=== PATIENT | female | born 1990 | race Native Hawaiian/Other Pacific Islander ===

== ENCOUNTER 2025-04-03 17:00 | Emergency (ER) | payer OTHER, SELFPAY ==
--- NOTE | ~2025-04-03 | CT_ITS ---
CT abdomen pelvis w con Ordering provider: Regla Rogers PA-C History: 34 years Female with . abd pain . Comparison: None. Technique: CT abdomen and pelvis with IV and without oral contrast. Automated exposure control and it erative reconstruction technique were employed. The dose-length product was 323.20 mGy-cm. 100 mL Omn ipaque 350 was given IV. Findings: VISUALIZED LOWER CHEST: Normal. UPPER ABDOMINAL ORGANS: Liver: Normal. Gallbladder: Contracted. Spleen: Normal. Stomach/duodenum: Normal. Pancreas: Normal. Adrenals: Normal. Kidneys: Tiny cyst in the right kidney lower pole. Scar is seen in the right kidney midpole. PELVIC ORGANS: The bladder is underfilled with thickened wall. Evaluation for cystitis advised. Follicle is seen in the left ovary with the largest measures 1.5 cm. BOWEL AND MESENTERY: Colon: No evidence of diverticulitis. Fecal material is loaded in the colon. Normal appendix. Small Bowel: Normal. No obstruction. Peritoneum/mesentery: No free air or free fluid. No mesenteric lymphadenopathy. RETROPERITONEUM: Normal aorta. No retroperitoneal lymphadenopathy. MUSCULOSKELETAL: Superficial soft tissues: Small Fat containing umbilical hernia. Otherwise, The superficial soft tiss ues are normal. Bones: Normal spine. IMPRESSION: 1. 1 No evidence of appendicitis, diverticulitis or intestinal obstruction. 2. Constipation. 3. Left ovarian follicles with the largest measures 1.5 cm. 4. Thickened wall of the urinary bladder. Evaluation for cystitis is advised. Reviewed, dictated and finalized at location A.
[2025-04-03 17:02] VITALS: BP 125/77; PULSE 91; RESP 16; TEMP 36.6; O2SAT 98
[2025-04-03 19:58] VITALS: BP 130/93; PULSE 82; RESP 17; O2SAT 100
--- NOTE | 2025-04-03 20:13 | ED.ABDPAIN ---
HPI - Abdominal Pain General Chief Complaint: Abdominal Pain Stated Complaint: hernia? Time Seen by Provider: 04/03/25 20:06 Source: patient Mode of arrival: ambulatory Limitations: no limitations History of Present Illness HPI narrative: This is a 34 year old female that presents to the ER for abdominal pain. Reports she was lifting at work. [place] sudden onset abdominal discomfort. Reports pain around her umbilical hernia. Denies fever, vomiting, diarrhea. Related Data Allergies Allergy/AdvReac Type Severity Reaction Status Date / Time acetaminophen (From Vicodin) Allergy Severe Anaphylaxis Verified 04/03/25 20:04 banana Allergy Severe Anaphylaxis Verified 04/03/25 20:04 bee pollen Allergy Severe Anaphylaxis Verified 04/03/25 20:04 divalproex sodium (From Allergy Severe Swelling Verified 04/03/25 20:04 Depakote) of Lip/Tongue/Throat epinephrine Allergy Severe Other Verified 04/03/25 20:04 hydrocodone (From Vicodin) Allergy Severe Anaphylaxis Verified 04/03/25 20:04 kiwi Allergy Severe Anaphylaxis Verified 04/03/25 20:04 midazolam (From Versed) Allergy Severe Other Verified 04/03/25 20:04 quetiapine (From Seroquel) Allergy Severe Swelling Verified 04/03/25 20:04 of Lip/Tongue/Throat strawberry Allergy Mild Hives Verified 04/03/25 20:04 lidocaine AdvReac Mild Hives Verified 04/03/25 20:04 vancomycin AdvReac Mild Rash Verified 04/03/25 20:04 powder latex AdvReac Mild Hives Uncoded 04/03/25 20:04 Review of Systems Review of Systems: All systems reviewed & are unremarkable except as noted in HPI and below PMFSH Past Medical History Medical History (Updated 04/03/25 @ 22:46 by Regla Rogers PA-C) History of bipolar disorder Exam Narrative: GENERAL: Well-appearing, well-nourished, and in no acute distress. HEAD: Normocephalic, atraumatic. EYES: EOMI. CHEST: Clear to auscultation. No respiratory distress. No wheezes rales or rhonchi HEART: Regular rate and rhythm. No murmur heard. Normal peripheral pulses. ABDOMEN: Soft, nontender, nondistended, normal active bowel sounds. Umbilical hernia present, tender to palpation, without overlying redness EXTREMITIES: Normal range of motion. No edema. SKIN: Warm, dry, no rash. NEURO: No focal deficits. Alert and oriented x3. PSYCH: Normal mood and affect Course Course Emergency Course: Patient updated on her workup and agrees with plan of care. Resting comfortably Vital Signs Vital signs: Vital Signs Temperature 97.8 F 04/03/25 17:02 Pulse Rate 91 04/03/25 17:02 Respiratory Rate 16 04/03/25 17:02 Blood Pressure 125/77 04/03/25 17:02 Pulse Oximetry 98 04/03/25 17:02 Temperature 97.8 F 04/03/25 17:02 Pulse Rate 70 04/03/25 22:38 Respiratory Rate 18 04/03/25 22:38 Blood Pressure 122/89 04/03/25 22:38 Pulse Oximetry 98 04/03/25 22:38 MDM - Abdominal Pain MDM Narrative Medical decision making narrative: Patient presents to the emergency department for abdominal discomfort. She is afebrile and nontoxic appearing. Her vitals are stable. Cbc without leukocytosis. Metabolic panel without concerning findings. Urine with evidence of infection. This was sent for culture. test negative. Patient is endorsing some urinary frequency. Will start on oral antibiotics. CT abdomen and pelvis shows constipation, ovarian follicles, thickened wall of the urinary bladder. Patient updated on her workup and agrees with plan of care. Resting comfortably. She is to follow up with primary provider. She was given warnings to return to the ER Differential Diagnosis Differential diagnosis: Likely abdominal pain, calculus of kidney, constipation, diverticulitis, small bowel obstruction and other (Umbilical hernia, UTI) Lab Data Attestation: I reviewed the patient's lab results. 04/03/25 20:27 04/03/25 20:27 Labs: Lab Results 04/03/25 04/03/25 04/03/25 Range/Units 20:27 20:35 20:37 WBC 6.7 (4.5-10.0) K/mm3 RBC 4.25 (4.2-5.4) M/mm3 Hgb 12.2 (12.0-15.0) g/dL Hct 37.3 (37.0-47.0) % MCV 87.8 (80-100) fl MCH 28.7 (26-34) pg MCHC 32.7 (32-36) g/dl RDW 12.3 (11.5-14.5) % Plt Count 239 (150-375) k/mm3 MPV 9.1 (7.4-10.4) fl Immature Gran % (Auto) 0.3 (0-0.5) % Neut % (Auto) 58.4 (45.5-73.1) % Lymph % (Auto) 30.4 (18.3-44.2) % [place] % (Auto) 7.7 (2.6-8.5) % Eos % (Auto) 2.6 (0-4.4) % Baso % (Auto) 0.6 (0.2-1.2) % Lymph # (Auto) 2.02 (0.9-3.2) K/mm3 [place] # (Auto) 0.5 (0.1-0.6) K/mm3 Eos # (Auto) 0.2 (0-0.3) K/mm3 Baso # (Auto) 0.0 (0.0-0.1) K/mm3 Abs Immat Gran (auto) 0.02 (0.00-0.031) K/mm3 Absolute Neuts (auto) 3.9 (1.3-6.7) K/mm3 Absolute Nucleated RBC 0.000 (0.0-0.012) K/mm3 Nucleated RBC % 0.0 (0.0-0.2) % Sodium 139 (137-145) mmol/L Potassium 3.4 (3.4-5.0) mmol/L Chloride 107 (98-107) mmol/L Carbon Dioxide 22 (22-30) mmol/L Anion Gap 10 (4-12) mmol/L BUN 7 (7-17) mg/dL Creatinine 0.68 L (0.7-1.0) mg/dL Estim Creat Clear Calc 88 ml/min Estimated GFR > 60 (59 - ) Glucose 98 (65-110) mg/dL Calcium 8.5 (8.4-10.2) mg/dL Total Bilirubin 0.4 (0.2-1.3) mg/dL AST 30 (14-36) U/L ALT 23 (6-35) U/L Alkaline Phosphatase 59 (38-126) U/L Total Protein 7.3 (6.3-8.2) g/dL Albumin 4.4 (3.5-5.1) g/dL Lipase 24 (23-300) U/L Serum HCG, Qual Negative Urine Color Yellow (Yellow) Urine Appearance Cloudy H (Clear) Urine pH 5.5 (5.0-9.0) Ur Specific [place] 1.024 (1.001-1.035) Urine Protein Trace (Negative) mg/dL Urine Glucose (UA) Negative (Negative) mg/dL Urine Ketones Trace H (Negative) mg/dL Ur Blood (Man) 2+ H (Negative) Urine Nitrate Positive H (Negative) Urine Bilirubin Negative (Negative) Urine Urobilinogen 1.0 (<2.0) mg/dL Add Ur Microanalysis Reviewed Leukocyte Esterase Rfl 2+ H (Negative) EMA/UL Urine RBC 0-2 (0-2) /hpf Urine WBC 11-20 H (0-3) /hpf Ur Squamous Epith Cells Few (Few) /hpf Urine Bacteria 4+ H /hpf Urine Casts 11-20 Urine Mucus Present /lpf POC Urine HCG, Qual Negative (Negative) Imaging Data Radiologist's impression: ITS Impressions Abdomen/Pelvis CT 04/03/25 22:13 IMPRESSION: 1. 1 No evidence of appendicitis, diverticulitis or intestinal obstruction. 2. Constipation. 3. Left ovarian follicles with the largest measures 1.5 cm. 4. Thickened wall of the urinary bladder. Evaluation for cystitis is advised. Critical Care Time Critical Care Time Critical Care Time: No Discharge Plan Discharge Clinical Impression: Acute UTI Umbilical hernia Qualifiers: Obstruction and gangrene presence: without obstruction or gangrene Qualified Code(s): K42.9 - Umbilical hernia without obstruction or gangrene Patient Disposition: Home Condition: Stable Instructions: Urinary Tract Infection in Women (ED), Abdominal Pain (ED) Additional Instructions: Return to the ER if you experience fever, abdominal pain with nausea and vomiting, you are unable to keep down liquids or solids, blood in the stool, blood in the urine or any other symptoms that are concerning to you Remain well hydrated. Take oral antibiotics as prescribed Follow up with primary care doctor You may follow up with general surgery for further evaluation of your umbilical hernia Patient Language: [place] Prescriptions: New nitrofurantoin monohyd/m-cryst [Macrobid] 100 mg capsule 100 mg PO Q12H 5 Days Qty: 10 0RF Rx Instructions: must administer with a meal/food Follow-up/Referrals: PHYSICIAN,PREFABRICATED HOUSES TRIMMER [Non-Staff] - Dre Ferrara MD [Physician] - Stand Alone Forms: Work/School Release IP
[2025-04-03 20:39] LABS: BEDSIDEPREGUCG Negative (Negative)
[2025-04-03 20:45] LABS: Basophils Percent Auto 0.6 % (0.2-1.2); Eosinophils Absolute Auto 0.2 K/mm3 (0-0.3); Eosinophils Percent Auto 2.6 % (0-4.4); Hematocrit 37.3 % (37.0-47.0); Hemoglobin 12.2 g/dL (12.0-15.0); Immature Granulocyte Absolute 0.02 K/mm3 (0.00-0.031); Immature Granulocyte Percent A 0.3 % (0-0.5); Lymphocytes Absolute Auto 2.02 K/mm3 (0.9-3.2); Lymphocytes Percent Auto 30.4 % (18.3-44.2); Mean Corpuscular HGB Conc 32.7 g/dl (32-36); Mean Corpuscular Hemoglobin 28.7 pg (26-34); Mean Corpuscular Volume 87.8 fl (80-100); Mean Platelet Volume 9.1 fl (7.4-10.4); Monocytes Absolute Auto 0.5 K/mm3 (0.1-0.6); Monocytes Percent Auto 7.7 % (2.6-8.5); Neutrophils Absolute Auto 3.9 K/mm3 (1.3-6.7); Neutrophils Percent Auto 58.4 % (45.5-73.1); Platelet Count Result 239 k/mm3 (150-375); Red Blood Count 4.25 M/mm3 (4.2-5.4); Red Cell Distribution Width 12.3 % (11.5-14.5); White Blood Count 6.7 K/mm3 (4.5-10.0)
[2025-04-03 20:54] LABS: Alanine Aminotransferase 23 U/L (6-35); Albumin Level 4.4 g/dL (3.5-5.1); Alkaline Phosphatase 59 U/L (38-126); Anion Gap 10 mmol/L (4-12); Aspartate Amino Transferase 30 U/L (14-36); Bilirubin,Total 0.4 mg/dL (0.2-1.3); Blood Urea Nitrogen 7 mg/dL (7-17); Calcium 8.5 mg/dL (8.4-10.2); Carbon Dioxide 22 mmol/L (22-30); Chloride 107 mmol/L (98-107); Estimated CRCL calculation 88 ml/min; Estimated Glomerular Filt Rate > 60; Glucose 98 mg/dL (65-110); Lipase 24 U/L (23-300); Potassium 3.4 mmol/L (3.4-5.0); SPREG INTERNAL CONTROL Positive; Serum Qual hCG Negative; Sodium 139 mmol/L (137-145); Total Protein 7.3 g/dL (6.3-8.2)
[2025-04-03 20:57] LABS: Add Urine Microscopic? YES; Appearance Urine Cloudy (Clear); Bacteria Urine 4+ /hpf; Bilirubin Urine Negative (Negative); Blood Urine 2+ (Negative); Color Urine Yellow (Yellow); Glucose Urine UA Negative (Negative); Ketones Urine Trace mg/dL (Negative); Leukocyte Esterase Ur 2+ LEU/UL (Negative); Mucus Urine Present /lpf; Need Manual Microscopic Reviewed; Nitrate Urine Positive (Negative); Protein Urine Trace mg/dL (Negative); RBC Urine 0-2 /hpf (0-2); Specific Grav Ur 1.024 (1.001-1.035); Squamous Epithelial Cell Urine Few /hpf (Few); pH Urine 5.5 (5.0-9.0)
[2025-04-03] MEDS: KETOROLAC 15 MG/ML VIAL (*BKC) IV PUSH (21:05)
[2025-04-03] MEDS: ONDANSETRON INJ 4 MG/2 ML VIAL IV PUSH (21:05)
[2025-04-03 22:38] VITALS: BP 122/89; PULSE 70; RESP 18; O2SAT 98
[2025-04-03 22:56] VITALS: BP 131/89; PULSE 70; RESP 18; O2SAT 100
== END 2025-04-03 22:57 | disposition home or self-care (01) ==
PROVIDERS: Emergency Provider Physician Assistant
DX: N39.0 Urinary tract infection, site not specified (principal); K42.9 Umbilical hernia without obstruction or gangrene
CPT/HCPCS: 36415; 74177; 80053; 81001; 81025; 83690; 84703; 85025; 87086; 87186; 96374; 96375; 99284; J1885; J2405; Q9967

== ENCOUNTER 2025-05-17 00:43 | Day surgery (SDC) | payer OTHER, SELFPAY ==
[2025-05-11 09:45] VITALS: BMI 25.4
--- NOTE | 2025-05-11 10:39 | PC.NURSE ---
Report to the Outpatient Waiting Room, entrance under the green pavilion located off [facility], at 1000 on 05-17-25. Planned Procedure Time: 1200.? Time changes happen often and if your time is changed the preop area will call you the afternoon before. - You and your visitor will be asked to self-screen and do not enter if you have any COVID symptoms. Please call surgeon if you need to reschedule. - A mask is optional within the hospital at this time. Patients may have clear liquids (water, carbonated beverages, clear teas, apple juice) until 3 hours prior to surgery with a maximum of 20 ounces. 0900 - No food from midnight until time of surgery and no smoking, or chewing tobacco (or any form of nicotine). No chewing gum, candy or mints. - Infants may have breast milk until 4 hours before surgery, formula 6 hours prior to surgery. - Children will be allowed to drink immediately following surgery.? If applicable, please bring a bottle or sippy cup to assist with drinking. Juice, water, soda, and popsicles are readily available.? For infants on formula, please bring formula the day of surgery.? Pacifiers are allowed. Take only the following medications with a SIP of water on the morning of surgery: tylenol and zofran if needed DO NOT STOP ANY OF YOUR OTHER PRESCRIPTION MEDICATIONS PRIOR TO SURGERY EXCEPT THE FOLLOWING Hold all vitamins and supplements for 3 days per anesthesiologist. Patient instructed to bring rescue inhaler DOS to the hospital Medications to discontinue per physician: N/A Please no make-up, nail citizen of [place], hairspray, perfume, deodorant, or body powder the day of surgery.? No jewelry (including any body piercings) or valuables the day of surgery, leave them at home.? Please take a shower or bath the night before, or the morning of, surgery with an antibacterial soap.? Wear comfortable, loose fitting clothing.? Children are encouraged to wear pajamas. - Jewelry must be removed prior to entering the operating room.? Rings and piercings that are not removed may be cut off. - The hospital will not accept responsibility for valuables.? - Please leave all valuables, including medications, at home the day of surgery. If you are going home after surgery, a licensed [employer] company driver must drive you home.? - NO public transportation without another adult if you receive anesthesia. - We recommend that an adult stay with you for 24 hours following discharge. - We also recommend that you do not drive, make important decision, drink alcoholic beverages, or take any drugs that were not prescribed by your health care provider for at least 24 hours after your discharge time. For Pediatric surgeries, we recommend two adults accompany the child home. Follow any additional instructions given to you from your surgeon. Telephone instructions given to Brynn Robles and asked if any additional questions and then verbalized understanding. Patient advised to call surgeon office or pre surgery nurse liaison [phone] if any additional questions.
[2025-05-17] VITALS (9 sets, daily range): BP systolic 114–128; BP diastolic 69–82; PULSE 64–101; RESP 14–22; TEMP 36.1–36.3; O2SAT 98–100
[2025-05-17] MEDS: KETOROLAC 15 MG/ML VIAL (*BKC) IV PUSH (09:50)
[2025-05-17] MEDS: ACETAMINOPHEN 500 MG TABLET 1000 MG PO (09:56)
--- NOTE | 2025-05-17 10:36 | P.HP_ITS ---
H&P: HPI History of Present Illness Date/Time: 05/17/25 10:36 Chief Complaint: Umbilical hernia Narrative: Brynn is a 34 y/o female who presents to the office for evaluation of umbilical pain. Patient was recently evaluated at [facility] ED on 04/03/25. States she developed pain at her umbilicus after lifting heavy boxes at her workplace. States she will occasionally lift over 50lbs at work. She reports a palpable b ulge at her umbilicus that has been present for 9 years. Reports constipation and nausea. CT abd/pelvis was performed in the ED showing No evidence of appendicitis, diverticulitis or intestinal obstruction. Constipation. Left ovarian follicles with the largest measures 1.5 cm. Thickened wall of the urinary bladder. Evaluation for cystitis is advised. Review of Systems Review of Systems: The remainder of the review of systems to include constitutional, HEENT, cardiovascular, respiratory, GI, , integumentary, musculoskeletal, endocrine, immunologic, hematologic, psychiatric, and neurologic are all negative except for which is mentioned above in the HPI. [facility] Past Medical History Medical History Seizures Heart attack Asthma Anxiety Anemia Allergies History of bipolar disorder Surgical History Surgical History Hx of tubal ligation Family History Family History Sibling Alcoholism Asthma Cancer Depression Grandparent Asthma Cancer Heart disease Hypertension Cerebrovascular accident Mother Depression Father Depression Social History Social History Smoking status: Unknown if ever smoked Tobacco type: cigarettes Second hand tobacco smoke exposure: Yes Alcohol intake: former Substance use: former Substance use type: crack/cocaine and amphetamines Do You Feel Safe in your Home?: Yes Lack of Transportation: No Lack of Food: Sometimes True Current Housing: I Have Housing Concerned About Future Housing: No Difficulty Paying Gas/Electric Bills: YES Difficulty Paying for Meds: No Currently Unemployed: No Education: High School Diploma/GED Difficulty w/ Childcare or Family Care: No Living arrangements: with family Occupation/Education: occupation Additional occupation/education comments: [employer] Agree to blood products: Yes Meds Home Medications and Allergies Home Medications ?Medication ?Instructions ?Recorded ?Confirmed ?Type acetaminophen 325 mg tablet 650 mg PO Q6H PRN pain 05/11/25 05/11/25 History (Tylenol) cetirizine 10 mg tablet (All Day 10 mg PO DAILY PRN allergy symptoms 05/11/25 05/11/25 History Allergy (cetirizine)) fluticasone propionate 50 1 spray intranasal DAILY 05/11/25 05/17/25 History mcg/actuation nasal spray,suspension (Allergy Relief (fluticasone)) ondansetron HCl 4 mg tablet 4 mg PO Q8H PRN nausea and vomiting 05/11/25 0 05/11/25 History Allergies Allergy/AdvReac Type Severity Reaction Status Date / Time banana Allergy Severe Anaphylaxis Verified 05/17/25 09:38 bee pollen Allergy Severe Anaphylaxis Verified 05/17/25 09:38 divalproex sodium (From Allergy Severe Swelling Verified 05/17/25 09:38 Depakote) of Lip/Tongue/Throat epinephrine Allergy Severe Other Verified 05/17/25 09:38 hydrocodone (From Vicodin) Allergy Severe Anaphylaxis Verified 05/17/25 09:38 kiwi Allergy Severe Anaphylaxis Verified 05/17/25 09:38 midazolam (From Versed) Allergy Severe Other Verified 05/17/25 09:38 quetiapine (From Seroquel) Allergy Severe Swelling Verified 05/17/25 09:38 of Lip/Tongue/Throat strawberry Allergy Mild Hives Verified 05/17/25 09:38 lidocaine AdvReac Mild Hives Verified 05/17/25 09:38 vancomycin AdvReac Mild Rash Verified 05/17/25 09:38 powder latex AdvReac Mild Hives Uncoded 05/17/25 09:38 Vital Signs Vital Signs - 24 hr 05/17/25 09:30 Temperature 36.1 C L Pulse Rate 95 Respiratory Rate 16 Blood Pressure 126/80 Pulse Oximetry 99 Oxygen Delivery Room Air Exam Const: General: comfortable and no acute distress HENMT: Ears: TM's normal bilaterally Face/Nose/Sinus: Normal nares present Mouth: Yes moist mucous membranes Eyes: General: appearance normal, both eyes and all related structures Sclera: sclerae normal Pupils: Equal, round and reactive pupils present EOM: EOMs intact bilaterally Neck: Neck: supple and no JVD Resp: Effort & Inspection: normal respiratory effort Auscultation: clear to auscultation bilaterally Cardio: Rate: regular rate Rhythm: regular rhythm GI: Other: Inspection: normal to inspection Auscultation: normal bowel sounds Palpation/Percussion: Yes non-tender, Yes no guarding, No Rebound tenderness present and Yes normal to percussion Other: Reducible 2cm umbilical hernia. Moderately tender. No skin changes. Skin: General skin exam: normal color and no rashes or lesions noted Neuro: General: gait normal Speech: normal speech Motor exam (neuro): 5/5 motor strength present throughout Sensory Exam: normal sensation Extrem: General: normal to inspection Psych: Mental Status: mental status grossly normal Affect: normal affect Assessment and Plan Assessment and plan (1) Umbilical hernia: Qualifiers: Obstruction and gangrene presence: without obstruction or gangrene Qualified Code(s): K42.9 - Umbilical hernia without obstruction or gangrene Code(s): K42.9 - Umbilical hernia without obstruction or gangrene Status: Acute Assessment and Plan: Patient presents for evaluation of umbilical pain. I have reviewed the ED report and radiology imaging prior to today's visit. Small umbilical hernia noted on exam. I have recommended open umbilical hernia repair, no mesh under general anesthesia as an outpatient. Procedure risks, benefits, indications, and expected outcomes were discussed with the patient in detail. She will have a 15lb lifting restriction for 4-6 weeks postoperatively. All questions were answered. Patient would like to proceed. Follow-up 2 weeks postoperatively. In the meantime, patient may return to work with a 10lb lifting restriction until surgery is performed.
--- NOTE | 2025-05-17 10:38 | WPDHPUPDATE1 ---
History and Physical Update Update Date/Time: 05/17/25 10:38 History and Physical has been reviewed, including an updated exam of the patient. There are NO changes in the patient's condition. Risks, benefits, and alternatives have been discussed and questions answered. Patient agrees to proceed with procedure.
--- NOTE | 2025-05-17 10:51 | P.PNAN_ITS ---
Anes - Initial Pre Proc Eval Procedure: Operation Date: 05/17/25 11:45 Proposed Procedures p Open Umbilical Hernia Repair - Dre Ferrara MD Date/Time: 05/17/25 10:51 Surgeon: Dre Ferrara MD Pre Op Diagnosis: reducible umbilical hernia Patient Data Age: 34 Gender: F Height: 1.55 m Weight: 65 kg Last Vital Signs Temp 36.1 C L 05/17/25 09:30 Pulse 95 05/17/25 09:30 Resp 16 05/17/25 09:30 BP 126/80 05/17/25 09:30 Pulse Ox 99 05/17/25 09:30 O2 Del Method Room Air 05/17/25 09:30 Allergies Allergy/AdvReac Type Severity Reaction Status Date / Time banana Allergy Severe Anaphylaxis Verified 05/17/25 09:38 bee pollen Allergy Severe Anaphylaxis Verified 05/17/25 09:38 divalproex sodium (From Allergy Severe Swelling Verified 05/17/25 09:38 Depakote) of Lip/Tongue/Throat epinephrine Allergy Severe Other Verified 05/17/25 09:38 hydrocodone (From Vicodin) Allergy Severe Anaphylaxis Verified 05/17/25 09:38 kiwi Allergy Severe Anaphylaxis Verified 05/17/25 09:38 midazolam (From Versed) Allergy Severe Other Verified 05/17/25 09:38 quetiapine (From Seroquel) Allergy Severe Swelling Verified 05/17/25 09:38 of Lip/Tongue/Throat strawberry Allergy Mild Hives Verified 05/17/25 09:38 lidocaine AdvReac Mild Hives Verified 05/17/25 09:38 vancomycin AdvReac Mild Rash Verified 05/17/25 09:38 powder latex AdvReac Mild Hives Uncoded 05/17/25 09:38 Home Medications ?Medication ?Instructions ?Recorded ?Confirmed ?Type acetaminophen 325 mg tablet 650 mg PO Q6H PRN pain 05/11/25 05/11/25 History (Tylenol) cetirizine 10 mg tablet (All Day 10 mg PO DAILY PRN allergy symptoms 05/11/25 05/11/25 History Allergy (cetirizine)) fluticasone propionate 50 1 spray intranasal DAILY 05/11/25 05/17/25 History mcg/actuation nasal spray,suspension (Allergy Relief (fluticasone)) ondansetron HCl 4 mg tablet 4 mg PO Q8H PRN nausea and vomiting 05/11/25 05/11/25 History Patient hx anesthesia problems: other (cardiac arrest with versed) Family hx anesthesia problems: none Results Review: All pre-operative results and documents have been reviewed as part of the pre- operative evaluation. [facility] Past Medical History Medical History Seizures Heart attack Asthma Anxiety Anemia Allergies History of bipolar disorder Surgical History Surgical History Hx of tubal ligation Family History Family History Sibling Alcoholism Asthma Cancer Depression Grandparent Asthma Cancer Heart disease Hypertension Cerebrovascular accident Mother Depression Father Depression Social History Social History Smoking status: Unknown if ever smoked Tobacco type: cigarettes Second hand tobacco smoke exposure: Yes Alcohol intake: former Substance use: former Substance use type: crack/cocaine and amphetamines Do You Feel Safe in your Home?: Yes Lack of Transportation: No Lack of Food: Sometimes True Current Housing: I Have Housing Concerned About Future Housing: No Difficulty Paying Gas/Electric Bills: YES Difficulty Paying for Meds: No Currently Unemployed: No Education: High School Diploma/GED Difficulty w/ Childcare or Family Care: No Living arrangements: with family Occupation/Education: occupation Additional occupation/education comments: [employer] Agree to blood products: Yes Anes - Eval Final PreProcedure Day of Procedure 05/17/25 10:51 Patient weight: overweight Heart: regular rate and rhythm Lungs: decreased breath sounds Airway: Mallampati scale class III and special considerations poor opening Neurological: alert and oriented Last oral intake: >/= 8 hours ASA classification: III Emergent: no Anesthetic plan: proceed Anesthesia type and monitoring: general ETT and standard monitoring Results Review: All pre-operative results and documents have been reviewed as part of the pre- operative evaluation. Informed Consent: The patient's anesthetic plan and its attendant risks and benefits were discussed with the patient/family/POA. Questions were solicited and answers provided to the satisfaction of the patient/family/POA.
[2025-05-17] MEDS: ceFAZolin 2 GM in SODIUM CHLORIDE 0.9% IV 50 ML 100 ML IVPB (11:58)
--- NOTE | 2025-05-17 12:56 | P.OP_ITS ---
Procedure Note - Detailed Date of Procedure 05/17/25 Pre-op Diagnosis Reducible umbilical hernia Post-op Diagnosis Same Procedure Performed Open umbilical hernia repair without mesh. Surgeon Dre Ferrara MD Polls Or Surveys Interviewer Kennedy Clemens, ELEUTERIO Anesthesia General Indications Patient is a 34-year-old female who has had enlarging bulge in her periumbilical region. It is somewhat symptomatic. She appears to have a reducible umbilical hernia. She presents now for primary repair of the hernia without mesh. Findings Patient had some preperitoneal fat within the hernia defect. It was viable. The fascial defect size was about 1cm in diameter. Description of Procedure After informed consent was obtained patient brought to the operating room she was placed supine position and general LMA anesthesia was administered. A time- out was then performed correctly identifying the patient as well as procedure to be performed. She was given perioperative IV antibiotics. Due to her allergies to local anesthetics none was used for this procedure. I then made a curved incision along the upper portion of the umbilicus with a scalpel then dissected down through the dermis skin with a scalpel. I encountered the hernia sac and opened the hernia sac to find some viable preperitoneal fat. I then resected the preperitoneal fat coming through the defect. I then isolated the umbilical stalk by dissecting around it with a Christi clamp. I then disconnected the umbilical stalk from the underlying fascia with electrocautery. I then cut away liver more the preperitoneal fat which was protruding through the defect. Then could evaluate the defect fully and it was about 1cm in diameter. This was too small for mesh so I repaired the hernia primarily placement of 3 separate 0 Ethibond sutures. About 1cm of good fascial tissue on each side was obtained with each bite. The defect was closed without any tension. I then irrigated out the incision with sterile saline solution hemostasis was good. I then recreated the inverted umbilicus by tacking down the dermis of the umbilicus to the deeper fascial structures the 3-0 Vicryl suture. Interrupted 2-0 Vicryl sutures then used to close the subcutaneous tissues. A more superficial layer interrupted 3-0 Vicryl suture was placed in a deep dermal fashion. The skin edges were approximated utilizing a running subcuticular 4 Monocryl suture. The incision was then cleaned and then a skin glue and a pressure dressing was applied to the incision. The patient tolerated the procedure well no complications. All sponges, needles, and instrument counts were correct at the end procedure. EBL was _10__cc. The patient was awakened and taken to recovery in stable and satisfactory condition. Implants None Estimated Blood Loss 10 Drains No Packing No Pathology None sent Complications No immediate complications Condition Stable Disposition PACU [facility] Billing Surgery - Charge Forward: Surgery Billing
[2025-05-17] MEDS: LACTATED RINGERS 1,000 ML 30 ML IV CONT (13:00)
[2025-05-17] MEDS: fentaNYL CITRATE INJ (*CRX) 100 MCG/2 ML VIAL 25 MCG IV PUSH ×4 (13:20→13:32)
[2025-05-17] MEDS: oxyCODONE HCL (*CRX) 5 MG TAB IR PO (14:32)
== END 2025-05-17 14:50 | disposition home or self-care (01) ==
PROVIDERS: Visit Provider Surgery
PROC: (CPT 49591; principal; 2025-05-17 11:45)
DX: K42.9 Umbilical hernia without obstruction or gangrene (principal); D64.9 Anemia, unspecified; F41.9 Anxiety disorder, unspecified; J45.909 Unspecified asthma, uncomplicated; I25.2 Old myocardial infarction; R56.9 Unspecified convulsions; F31.9 Bipolar disorder, unspecified; Z98.51 Tubal ligation status; Z80.9 Family history of malignant neoplasm, unspecified; Z82.49 Family history of ischemic heart disease and other diseases of the circulatory system
CPT/HCPCS: 49591; J0690; A9270; J1100; J1171; J1885; J2003; J2405; J2704; J3010; J7120